=== PATIENT | female | born 1980 | race Caucasian/White ===

== ENCOUNTER 2022-04-20 15:28 | Outpatient (CLI) | payer OTHER, SELFPAY ==
--- NOTE | 2022-04-20 15:20 | MM_ITS ---
Patient: KJ GUILLEN Facility:?[facility] Patient ID:?[id number] Site Patient ID:?[id number]. Site :?1980 Study:?XRay-Breast Bilateral 3D W/CAD-04/20/2022 4:17:22 PM Ordering Physician:Miguel Rodriguez Final Report: BILATERAL SCREENING MAMMOGRAM WITH COMPUTER-AIDED DETECTION AND TOMOSYNTHESIS, 04/20/2022 TECHNIQUE: CC and MLO views were obtained. These mammographic images have been obtained using full-field digital technique. These mammographic images were interpreted with the benefit of computer-aided detection. Breast tomosynthesis was used in this interpretation. COMPARISON FILM: 11/17/2020, 02/17/2018, 07/19/2014. FINDINGS: The breasts are heterogeneously dense, which may obscure small masses. IMPRESSION: There is no radiographic evidence for malignancy. ASSESSMENT: BI-RADS Category 1: Negative RECOMMENDATION: Routine screening mammogram in 1 year. A lay language report of this examination will be provided to the patient. GIOVANNI SHEIKH M.D. Diagnostic Radiologist [email or web address] ADELA/[email or web address] D& Transcribed: 2:[address]/Dictated by: Giovanni Sheikh MD @ 04/21/2022 9:13:00 AM Signed by:?Giovanni Sheikh MD @04/21/2022 3:51:29 PM (Electronic Signature)
== END 2022-04-20 15:29 | disposition home or self-care (01) ==
PROVIDERS: PCP Physician Assistant Medical; Visit Provider Physician Assistant Medical
DX: Z12.31 Encounter for screening mammogram for malignant neoplasm of breast (principal); R92.2 Inconclusive mammogram
CPT/HCPCS: 77063; 77067

== ENCOUNTER 2023-03-17 09:07 | Outpatient (CLI) | payer OTHER, SELFPAY | END 2023-03-17 09:08 | disposition home or self-care (01) | PROVIDERS: PCP Physician Assistant Medical; Visit Provider Registered Nurse | DX: N39.3 Stress incontinence (female) (male) (principal) | CPT/HCPCS: 87086 ==

== ENCOUNTER 2023-05-03 14:25 | Outpatient (CLI) | payer OTHER, SELFPAY ==
--- NOTE | 2023-05-03 14:40 | CRLHL7_ITS ---
For Patients: As a result of the Century Cures Act, medical imaging exams and procedure reports are released immediately into your electronic medical record. You may view this report before your referring provider. If you have questions, please contact your health care provider. BILATERAL SCREENING MAMMOGRAM WITH COMPUTER-AIDED DETECTION AND TOMOSYNTHESIS TECHNIQUE: CC and MLO views were obtained. These mammographic images have been obtained using full-field digital technique. These mammographic images were interpreted with the benefit of computer-aided detection. Breast Tomosynthesis was used in this interpretation. COMPARISON FILM: 04/20/22, 11/17/20, 02/17/18. FINDINGS: The breasts are heterogeneously dense, which may obscure small masses IMPRESSION: There is no radiographic evidence for malignancy. ASSESSMENT: BI-RADS Category 1: Negative RECOMMENDATION: Routine screening mammogram in 1 year. A lay language report of this examination will be provided to the patient. Sean Lund M.D. Diagnostic Radiologist [email or web address] TRACY/Dictated by: Sean Lund MD @ 05/05/2023 12:26:00 PM (Electronically Signed)
== END 2023-05-03 14:26 | disposition home or self-care (01) ==
LOC: MAMMO 14:26
PROVIDERS: PCP Physician Assistant Medical; Visit Provider Physician Assistant Medical
DX: Z12.31 Encounter for screening mammogram for malignant neoplasm of breast (principal); R92.2 Inconclusive mammogram
CPT/HCPCS: 77063; 77067

== ENCOUNTER 2024-03-15 08:04 | Outpatient (CLI) | payer OTHER, SELFPAY | END 2024-03-15 08:05 | disposition home or self-care (01) | LOC: NFLDREF 03-20 14:21 | PROVIDERS: PCP Physician Assistant Medical; Referring Provider Physician Assistant Medical; Visit Provider Physician Assistant Medical | DX: R53.83 Other fatigue (principal); R79.89 Other specified abnormal findings of blood chemistry; M25.562 Pain in left knee; G89.29 Other chronic pain | CPT/HCPCS: 80053; 80061; 82306; 82607; 82728; 84443 ==

== ENCOUNTER 2024-04-02 07:00 | Outpatient (CLI) | payer OTHER, SELFPAY ==
--- NOTE | 2024-04-02 07:15 | MR_ITS ---
[facility] [address] [facility] [address] Phone:?[phone] Fax:?[phone] Referring Physician Information: Yuri Tinoco M.D. [address] [facility] [address] Phone:?[phone] Fax:?[phone] Patient:Cory Harris D.O.B:?1980 Sex:?Female Phone:?[phone] [facility] MRN:?[id number] Exam Date:?04/02/2024 EXAM: MRI of the LEFT KNEE, without contrast CLINICAL HISTORY: Ongoing left knee pain. High-grade injury. Evaluate for meniscal tear. COMPARISONS: Plain radiographs 03/15/2024. TECHNICAL: MR sequences of the left knee: sagittals: PD, PDFS coronals: PD, T2FS axials: PD, PDFS CONTRAST: None SEDATION: None FINDINGS: Bones: No fracture, bone marrow contusion, or other suspicious bone marrow signal abnormality. Patellofemoral joint: Cartilage: Single full-thickness chondral fissure over the superior portion of the trochlear groove. No subchondral cystic change/subchondral edema-like signal. Retinacula: The medial and lateral retinacula are intact. Fat pads: The infrapatellar, quadriceps, and prefemoral fat pads are unremarkable. Knee joint: Effusion: Physiologic amount of joint fluid. Popliteal cyst: Tiny perforated popliteal cyst. Intra-articular bodies: None. Posteromedial corner: The semimembranosus and pes anserine tendons are intact. Medial compartment: Medial meniscus: There is ill-defined sprain of the posterior meniscocapsular tissues. Cartilage: Intact. Lateral compartment: Lateral meniscus: Intact. Cartilage: Intact. Ligaments: Anterior cruciate ligament: Intact. Posterior cruciate ligament: Intact. Medial collateral ligament: Intact. Posterior oblique ligament: Intact. Fibular collateral ligament: Intact. Posterolateral corner: The distal biceps femoris tendon, iliotibial band, popliteus tendon, popliteus muscle, popliteofibular ligament, and arcuate ligament are intact. Extensor mechanism: Patellar tendon: Intact. Quadriceps tendon: Intact. IMPRESSION: 1. Ill-defined sprain of the medial compartment posterior meniscocapsular tissues. 2. Single full-thickness chondral fissure over the superior portion of the trochlear groove. No subchondral cystic change/subchondral edema-like signal. 3. Tiny perforated popliteal cyst. 4. No ligamentous injury, lateral meniscal pathology, or tendinous pathology of the left knee. RCB Electronically signed on 04/02/2024 1:14:00 PM by Rajan Weber M.D.
== END 2024-04-02 07:01 | disposition home or self-care (01) ==
LOC: MRI 07:00
PROVIDERS: PCP Physician Assistant Medical; Visit Provider Orthopaedic Surgery
DX: M25.562 Pain in left knee (principal); S83.8X2A Sprain of other specified parts of left knee, initial encounter; M71.22 Synovial cyst of popliteal space [Baker], left knee; G89.29 Other chronic pain
CPT/HCPCS: 73721

== ENCOUNTER 2024-04-26 09:41 | Outpatient (CLI) | payer OTHER, SELFPAY ==
--- OUTSIDE RECORDS SUMMARY | 2024-04-26 09:55 | XMS_ITS | Clinical Summary ---
Author Organization [employer] [facility] Address [place], [place] [address] Care Team Providers Care Cardiovascular Lab Director Name Role Phone Pcp, No Primary Care Provider Unavailabl e Allergies No known active allergies Medications Medication Sig Dispensed Refills Start Date End Date Status cholecalciferol (VITAMIN D) 1,000 unit capsule Take 1 capsule by mouth once daily. 0 09/22/2009 Active albuterol HFA (PROAIR HFA) 90 mcg/Actuation inhalerIndications:Co ugh Inhale 2 Puffs by mouth 4 times daily if needed. 1 Inhaler 0 10/05/2010 Active TRINESSA 0.18/0.215/0.25 mg-35 mcg (28) tabletIndications:Uns pecified symptom associated with female genital organs TAKE ONE TABLET BY MOUTH DAILY 84 tablet 0 10/25/2011 Active Active Problems Problem Noted Date Diagnosed Date Contraception - Pill 05/13/2010 Vitamin D deficiency 08/22/2009 Overview (08/22/2009): 08/13 VIT D = 23.2 - rec 1000 IU/d thru ASCUS on Pap smear 10/09/2008 Overview (10/20/2010): 10/07/10 PAP neg; HPV pos 08/21/09 PAP neg; HPV pos () 10/09/08 PAP ASCUS; HPV pos - colpo 01/01/2009 = neg (no bx) 06/16/07 PAP neg; HPV pos Screening for cardiovascular condition 9 Overview (10/02/2008): 06/16/07: TC 178, TG 52, HDL 62, LDL 106 Resolved Problems Problem Noted Date Diagnosed Date Resolved Date Tachycardia 02/27/2010 05/13/2010 Overview (02/27/2010): 02/27/2010 - at 36wks ; EKG sinus tach, some SOB Supervision of other normal 08/18/2009 05/13/2010 Overview (11/14/2009): LMP 06/04/09 = MALCOLM 03/29/2010 due date U/S 09/19 @ 12w5d = MALCOLM 03/29/10 - NT neg U/S 11/10/09 @ 20w0d = MALCOLM 03/30/10 Immunizations Name Administration Dates Next Due Influenza, IIV3 (Age >=3 years) 04/15/2010 Tdap 06/16/2007 Family History Medical History Relation Name Comments Other Brother 2 Good Health Brother 3 Hypertension Father Good Health Mother Diabetes Neg. 1 Cancer Neg. 2 Osteoporosis Neg. 3 Heart Disease Neg. 4 Relation Name Status Comments Brother 1 Alive Brother 2 Brother 3 Father Alive Mother Alive Neg. 1 Neg. 2 Neg. 3 Neg. 4 Social History Tobacco Use Types Packs/Day Years Used Date Smoking Tobacco: Never Smokeless Tobacco: Never Alcohol Use Standard Drinks/Week Comments Yes 0 (1 standard drink = 0.6 oz pur e alcohol) occasionally Sex and Gender Information Value Date Recorded Sex Assigned at Not on file Gender Identity Not on file Sexual Orientation Not on file Obstetrics History Para Term AB IAB SAB Ectopic Multiple Livin g Live Births 2 1 1 1 1 0 1 1 Date Outcome GA Total Labor Labor/2nd/3rd Weight Sex Type Anes PTL Kelli A1 A5 Name Clin 2004 IAB Comments:No complicati ons 2009 Term 40w 3d 3.54 kg (7 lb 13 oz) F Vag Epidur al N Livin g Magnolia Harris [facility] on Delivery Location:[place] Comments:No complicati ons Comments Blood type A+ Last Filed Vital Signs Vital Sign Reading Time Taken Comments Blood Pressure 112/59 10/07/2010 8:49 AM CDT Pulse 80 10/05/2010 5:26 PM CDT Temperature 36.7 ??C (98.1 ??F) 10/05/2010 5:26 PM CD T Respiratory Rate 16 10/05/2010 5:26 PM CDT Oxygen Saturation 100% 10/05/2010 5:26 PM CDT Inhaled Oxygen Concentration - - Weight 69.6 kg (153 lb 6.4 oz) 10/07/2010 8:49 A M CDT Height 169.2 cm (5' 6.6) 10/07/2010 8:49 AM CDT Body Mass Index 24.32 10/07/2010 8:49 AM CDT Plan of Treatment Health Maintenance Due Date Last Done Comments Depression screening for age 12+ 1990 BMI (ht and wt on same day) for age 18+ 1996 Hepatitis C screening for age 18-79 1996 Tetanus booster 06/16/2017 06/16/2007 Colonoscopy through age 75 2023 Lipids for age 45-75 2023 06/16/2007 Mammogram for age 45-75 2023 COVID-19 vaccine series (2023-25 season) 2024 Influenza for age 9-49 03/04/2024 04/15/2010 Pap test for age 21-65 03/20/2024 , 03/20/2021, 02/13/2018, Additional history exists Tdap Completed 06/16/2007 HIV for age 15-65 Completed 08/18/2009 Pneumococcal series for age 6-64 Aged Out No longer eligible based on patient's age to complete this topic Procedures Procedure Name Priority Date/Time Associated Diagnosis Comments HPV HIGH RISK Routine 03/20/2021 9:30 AM CDT ANTI HIV 1/2 Routine 08/18/2009 9:58 AM USED CAR MAKE READY MECHANIC Supervision of Normal First LIPID PANEL Routine 06/16/2007 Screening For Cardiovascular Condition from Last 3 Months or Most Recently Relevant to Health Maintenance Results * HPV HIGH RISK (03/20/2021 9:30 AM CDT) TYPE 16 Negative Negative 03/24/2021 11:54 AM CDT [facility] TYPE 18 Negative Negative 03/24/2021 11:54 AM CDT [facility] OTHER HIGH RISK TYPES Negative Negative 03/24/2021 11:54 AM CDT [facility] Other (Cervical/Vagina l) 03/20/2021 9:30 AM CDT 03/20/2021 6:24 PM CDT Narrative [facility] - 03/24/2021 11:54 AM CDT HPV types 16, 18, 31, 33, 35, 39, 45, 51, 52, 56, 58, 59, 66 and 68 DNA were undetectable or below the pre-set threshold. Methodology: Andriy Natalya 4800 HPV Test Jennifer Johnson PA-C MICROBIOLOGY [facility] [address] * ANTI HIV 1/2 (08/18/2009 9:58 AM USED CAR MAKE READY MECHANIC) ANTI HIV 1/2 Non-reacti ve [facility] Blood specimen (specimen) BLOOD SPECIMEN / Unknown 08/18/2009 9:58 AM USED CAR MAKE READY MECHANIC 08/18/2009 9:51 AM USED CAR MAKE READY MECHANIC Constance Roland MD SEND OUTS [facility] INTERNAL ZIP [address] [place] [address] * LIPID PANEL (06/16/2007) CHOLESTEROL,TOTAL mg/dL TRIGLYCERIDES mg/dL HDL CHOLESTEROL mg/dL LDL CHOLESTEROL mg/dL CHOL/HDL RATIO Blood specimen (specimen) BLOOD SPECIMEN / Unknown Constance Roland MD CHEMISTRY from Last 3 Months or Most Recently Relevant to Health Maintenance Care Teams Cardiovascular Lab Director Relationship Specialty Start Date End Date Pcp, No . PCP - General 02/26/16
--- OUTSIDE RECORDS SUMMARY | 2024-04-26 09:55 | XMS_ITS | Clinical Summary ---
Author Organization [place] [facility] Address [address] [place] [address] Care Team Providers Care Plasma Cutting Machine Operator Name Role Phone [facility], [facility] Primary Care Provide r Rosalinda Diaz MD Unavailable [phone] Allergies Active Allergy Reactions Criticality Noted Date Comments Azithromycin Rash 11/18/2004 Zithromax Medications LY 28 3-0.03 MG OR TABS 1 TABLET DAILY 11/18/2004 Active Immunizations Name Administration Dates Next Due Influenza Vaccine >6 months,quad, PF 03/30/2019, 05/12/2018 TDAP Vaccine (Adacel) 10/12/2012,03/04/2010 Family History Medical History Relation Comments Hypertension Father Lipids Father Gynecology Mother Endometriosis, h ad a hysterectomy Cerebrovascular Disease Paternal Grandfather Hypertension Paternal Grandfather Lipids Paternal Grandfather Relation Status Comments Brother Alive Father Alive Maternal Grandfather Alive Maternal Grandmother Alive Mother Alive Paternal Grandfather Alive Paternal Grandmother Alive Social History Tobacco Use Types Packs/Day Years Used Date Smoking Tobacco: Never Alcohol Use Standard Drinks/Week Comments Not Asked 0 (1 standard drink = 0.6 oz pur e alcohol) Comments No Sex and Gender Information Value Date Recorded Sex Assigned at Not on file Legal Sex Female 4:13 AM LUGGAGE ATTENDANT Gender Identity Not on file Sexual Orientation Not on file Last Filed Vital Signs Vital Sign Reading Time Taken Comments Blood Pressure 112/70 10/01/2005 8:30 AM LUGGAGE ATTENDANT Pulse 72 10/01/2005 8:30 AM LUGGAGE ATTENDANT Temperature 37.3 ??C (99.1 ??F) 11/18/2004 3:00 PM CD T Respiratory Rate 16 11/18/2004 3:00 PM CDT Oxygen Saturation - - Inhaled Oxygen Concentration - - Weight 68.3 kg (150 lb 8 oz) 10/01/2005 8:30 AM LUGGAGE ATTENDANT Height 167.6 cm (5' 6) 10/01/2005 8:30 AM LUGGAGE ATTENDANT Body Mass Index 24.29 10/01/2005 8:30 AM LUGGAGE ATTENDANT Plan of Treatment Not on file Care Teams Plasma Cutting Machine Operator Relationship Specialty Start Date End Date [facility], [facility] EMBOSSING [place] [address] PCP - General Family Practice 05/04/18 Rosalinda Diaz MD [address] [facility] [address] [place] [address] 05/04/18
--- OUTSIDE RECORDS SUMMARY | 2024-04-26 09:55 | XMS_ITS | Referral Summary ---
Author Organization [facility] Address [address] [place] [address] Care Team Providers Care Landscape Contractor Name Role Phone [facility], [facility] Primary Care Provide r Rosalinda Diaz MD Unavailable [phone] Allergies Active Allergy Reactions Criticality Noted Date Comments Azithromycin Rash 11/18/2004 Zithromax Medications LY 28 3-0.03 MG OR TABS 1 TABLET DAILY 11/18/2004 Active Immunizations Name Administration Dates Next Due Influenza Vaccine >6 months,quad, PF 03/30/2019, 05/12/2018 TDAP Vaccine (Adacel) 10/12/2012,03/04/2010 Social History Tobacco Use Types Packs/Day Years Used Date Smoking Tobacco: Never Alcohol Use Standard Drinks/Week Comments Not Asked 0 (1 standard drink = 0.6 oz pur e alcohol) Comments No Sex and Gender Information Value Date Recorded Sex Assigned at Not on file Legal Sex Female 4:13 AM AIR BOATSWAIN Gender Identity Not on file Sexual Orientation Not on file Last Filed Vital Signs Vital Sign Reading Time Taken Comments Blood Pressure 112/70 10/01/2005 8:30 AM AIR BOATSWAIN Pulse 72 10/01/2005 8:30 AM AIR BOATSWAIN Temperature 37.3 ??C (99.1 ??F) 11/18/2004 3:00 PM CD T Respiratory Rate 16 11/18/2004 3:00 PM CDT Oxygen Saturation - - Inhaled Oxygen Concentration - - Weight 68.3 kg (150 lb 8 oz) 10/01/2005 8:30 AM AIR BOATSWAIN Height 167.6 cm (5' 6) 10/01/2005 8:30 AM AIR BOATSWAIN Body Mass Index 24.29 10/01/2005 8:30 AM AIR BOATSWAIN Plan of Treatment Not on file Care Teams Landscape Contractor Relationship Specialty Start Date End Date [facility], [facility] [place] [address] PCP - General Family Practice 05/04/18 Rosalinda Diaz MD [address] [facility] [address] [address] 05/04/18
== END 2024-04-26 09:42 | disposition home or self-care (01) ==
LOC: NFLDREF 09:45
PROVIDERS: PCP Physician Assistant Medical; Visit Provider Family Medicine
DX: R79.89 Other specified abnormal findings of blood chemistry (principal); R53.83 Other fatigue; R22.1 Localized swelling, mass and lump, neck; M54.2 Cervicalgia
CPT/HCPCS: 84443

== ENCOUNTER 2024-05-01 07:04 | Outpatient (CLI) | payer OTHER, SELFPAY ==
--- OUTSIDE RECORDS SUMMARY | 2024-05-01 07:05 | XMS_ITS | Clinical Summary ---
Author Organization [employer] [facility] Address [place], [place] [address] Care Team Providers Care Fitness Technician Name Role Phone Pcp, No Primary Care [...] Epidur al N Livin g Magnolia Harris [facility] on Delivery Location:Deb Comments:No complicati ons Comments [...] ANTI HIV 1/2 Routine 08/18/2009 9:58 AM DISTRICT PLANT SUPERVISOR Supervision of Normal First LIPID PANEL Routine 06/16/2007 Screening For Cardiovascular Condition from Last 3 Months or Most Recently Relevant to Health Maintenance Results * HPV HIGH RISK (03/20/2021 9:30 AM CDT) TYPE 16 Negative Negative 03/24/2021 11:54 AM CDT [facility] TYPE 18 Negative Negative 03/24/2021 11:54 AM CDT [facility] OTHER HIGH RISK TYPES Negative Negative 03/24/2021 11:54 AM CDT [facility] Other (Cervical/Vagina l) 03/20/2021 9:30 AM CDT 03/20/2021 6:24 PM CDT Narrative [facility] - 03/24/2021 11:54 AM CDT HPV types 16, 18, 31, 33, 35, 39, 45, 51, 52, 56, 58, 59, 66 and 68 DNA were undetectable or below the pre-set threshold. Methodology: Andriy Natalya 4800 HPV Test Jennifer Johnson PA-C [facility]BIOLOG[facility] [address] * ANTI HIV 1/2 (08/18/2009 9:58 AM DISTRICT PLANT SUPERVISOR) ANTI HIV 1/2 Non-reacti ve [facility] Blood specimen (specimen) BLOOD SPECIMEN / Unknown 08/18/2009 9:58 AM DISTRICT PLANT SUPERVISOR 08/18/2009 9:51 AM DISTRICT PLANT SUPERVISOR Constance Roland MD SEND OUTS [facility] INTERNAL ZIP [address] [place] [address] * LIPID PANEL (06/16/2007) CHOLESTEROL,TOTAL mg/dL TRIGLYCERIDES mg/dL HDL CHOLESTEROL mg/dL LDL CHOLESTEROL mg/dL CHOL/HDL RATIO Blood specimen (specimen) BLOOD SPECIMEN / Unknown Constance Roland MD CHEMISTRY from Last 3 Months or Most Recently Relevant to Health Maintenance Care Teams Fitness Technician Relationship Specialty Start Date End Date Pcp, No . PCP - General 02/26/16
--- OUTSIDE RECORDS SUMMARY | 2024-05-01 07:05 | XMS_ITS | Clinical Summary ---
Author Organization [place] [facility] Address [address] [place] [address] Care Team Providers Care Stockfeed Miller Name Role Phone [facility], [facility] Primary Care Provide r Rosalinda Diaz MD Unavailable [phone] Allergies Active Allergy Reactions Criticality Noted Date [...] on file Legal Sex Female 4:13 AM FLUID JET CUTTER OPERATOR Gender Identity Not on file Sexual Orientation Not on file Last Filed Vital Signs Vital Sign Reading Time Taken Comments Blood Pressure 112/70 10/01/2005 8:30 AM FLUID JET CUTTER OPERATOR Pulse 72 10/01/2005 8:30 AM FLUID JET CUTTER OPERATOR Temperature 37.3 ??C (99.1 ??F) 11/18/2004 3:00 PM CD T Respiratory Rate 16 11/18/2004 3:00 PM CDT Oxygen Saturation - - Inhaled Oxygen Concentration - - Weight 68.3 kg (150 lb 8 oz) 10/01/2005 8:30 AM FLUID JET CUTTER OPERATOR Height 167.6 cm (5' 6) 10/01/2005 8:30 AM FLUID JET CUTTER OPERATOR Body Mass Index 24.29 10/01/2005 8:30 AM FLUID JET CUTTER OPERATOR Plan of Treatment Not on file Care Teams Stockfeed Miller Relationship Specialty Start Date End Date [facility], [facility] [place] [address] PCP - General Family Practice 05/04/18 Rosalinda Diaz MD [address] [facility] [address] [place] [address] 05/04/18
--- OUTSIDE RECORDS SUMMARY | 2024-05-01 07:06 | XMS_ITS | Referral Summary ---
Author Organization [place] Address [address] [place] [address] Care Team Providers Care Outside Sales Advertising Executive Name Role Phone [facility], [facility] Primary Care Provide r Rosalinda Diaz MD Unavailable [phone] Allergies Active Allergy Reactions Criticality Noted Date [...] on file Legal Sex Female 4:13 AM DRAFTER ASSISTANT Gender Identity Not on file Sexual Orientation Not on file Last Filed Vital Signs Vital Sign Reading Time Taken Comments Blood Pressure 112/70 10/01/2005 8:30 AM DRAFTER ASSISTANT Pulse 72 10/01/2005 8:30 AM DRAFTER ASSISTANT Temperature 37.3 ??C (99.1 ??F) 11/18/2004 3:00 PM CD T Respiratory Rate 16 11/18/2004 3:00 PM CDT Oxygen Saturation - - Inhaled Oxygen Concentration - - Weight 68.3 kg (150 lb 8 oz) 10/01/2005 8:30 AM DRAFTER ASSISTANT Height 167.6 cm (5' 6) 10/01/2005 8:30 AM DRAFTER ASSISTANT Body Mass Index 24.29 10/01/2005 8:30 AM DRAFTER ASSISTANT Plan of Treatment Not on file Care Teams Outside Sales Advertising Executive Relationship Specialty Start Date End Date [facility], [facility] T[employer] [place] [place] [address] PCP - General Family Practice 05/04/18 Rosalinda Diaz MD [address] [facility] [address] [address] 05/04/18
--- NOTE | 2024-05-01 07:15 | CRLHL7_ITS ---
For Patients: As a result of the Century Cures Act, medical imaging exams and procedure reports are released immediately into your electronic medical record. You may view this report before your referring provider. If you have questions, please contact your health care provider. INDICATION: Fatigue COMPARISON: none TECHNIQUE: Aparicio scale and color Doppler images were acquired of the thyroid gland. FINDINGS: The thyroid gland demonstrates normal uniform echogenicity and has a smooth outer contour. The right lobe measures 5.2 x 1.3 x 1.5 cm and the left lobe measures 4.7 x 1.2 x 1.5 cm in size. Isthmus measures 2 millimeters. Cystic nodule right thyroid lobe measures 4 x 3 x 3 millimeters, TR 1. The color Doppler images demonstrate normal vascularity. There is no evidence of cervical lymphadenopathy or parathyroid mass. IMPRESSION: Unremarkable thyroid ultrasound. No suspicious thyroid nodule. Dictated by Sean Lund MD @ 05/01/2024 12:15:05 PM (Electronically Signed)
== END 2024-05-01 07:05 | disposition home or self-care (01) ==
PROVIDERS: PCP Physician Assistant Medical; Visit Provider Family Medicine
DX: R53.83 Other fatigue (principal); M54.2 Cervicalgia; R22.1 Localized swelling, mass and lump, neck
CPT/HCPCS: 76536

== ENCOUNTER 2024-05-07 07:56 | Outpatient (CLI) | payer OTHER, SELFPAY ==
--- OUTSIDE RECORDS SUMMARY | 2024-05-07 07:58 | XMS_ITS | Clinical Summary ---
Author Organization [facility] Address [address] [place] [address] Care Team Providers Care Plant Hr Manager Name Role Phone [facility], [facility] Primary Care Provide r Rosalinda Diaz MD Unavailable [phone] Allergies Active Allergy Reactions Criticality Noted Date [...] on file Legal Sex Female 4:13 AM MICROFILM PROCESSOR Gender Identity Not on file Sexual Orientation Not on file Last Filed Vital Signs Vital Sign Reading Time Taken Comments Blood Pressure 112/70 10/01/2005 8:30 AM MICROFILM PROCESSOR Pulse 72 10/01/2005 8:30 AM MICROFILM PROCESSOR Temperature 37.3 ??C (99.1 ??F) 11/18/2004 3:00 PM CD T Respiratory Rate 16 11/18/2004 3:00 PM CDT Oxygen Saturation - - Inhaled Oxygen Concentration - - Weight 68.3 kg (150 lb 8 oz) 10/01/2005 8:30 AM MICROFILM PROCESSOR Height 167.6 cm (5' 6) 10/01/2005 8:30 AM MICROFILM PROCESSOR Body Mass Index 24.29 10/01/2005 8:30 AM MICROFILM PROCESSOR Plan of Treatment Not on file Care Teams Plant Hr Manager Relationship Specialty Start Date End Date [facility], [facility] [place] [address] PCP - General Family Practice 05/04/18 Rosalinda Diaz MD [address] [facility] [address] [place] [address] 05/04/18
--- OUTSIDE RECORDS SUMMARY | 2024-05-07 07:58 | XMS_ITS | Clinical Summary ---
Author Organization [employer] [facility] Address [place], [place] [address] Care Team Providers Care Health Practice Manager Name Role Phone Pcp, No Primary Care [...] Epidur al N Livin g [facility] on Delivery Location:Deb Comments:No complicati ons Comments [...] ANTI HIV 1/2 Routine 08/18/2009 9:58 AM SHIP ENGINES OPERATING ENGINEER Supervision of Normal First LIPID PANEL Routine 06/16/2007 Screening For Cardiovascular Condition from Last 3 Months or Most Recently Relevant to Health Maintenance Results * HPV HIGH RISK (03/20/2021 9:30 AM CDT) TYPE 16 Negative Negative 03/24/2021 11:54 AM CDT [facility] TYPE 18 Negative Negative 03/24/2021 11:54 AM CDT [facility] OTHER HIGH RISK TYPES Negative Negative 03/24/2021 11:54 AM CDT [facility] Other (Cervical/Vagina l) 03/20/2021 9:30 AM CDT 03/20/2021 6:24 PM CDT Narrative [facility] - 03/24/2021 11:54 AM CDT HPV types 16, 18, 31, 33, 35, 39, 45, 51, 52, 56, 58, 59, 66 and 68 DNA were undetectable or below the pre-set threshold. Methodology: Andriy Natalya 4800 HPV Test Jennifer Johnson PA-C [facility]BI[facility] [address] * ANTI HIV 1/2 (08/18/2009 9:58 AM SHIP ENGINES OPERATING ENGINEER) ANTI HIV 1/2 Non-reacti ve [facility] Blood specimen (specimen) BLOOD SPECIMEN / Unknown 08/18/2009 9:58 AM SHIP ENGINES OPERATING ENGINEER 08/18/2009 9:51 AM SHIP ENGINES OPERATING ENGINEER Constance Roland MD SEND OUTS [facility] INTERNAL ZIP [address] [place] [address] * LIPID PANEL (06/16/2007) CHOLESTEROL,TOTAL mg/dL TRIGLYCERIDES mg/dL HDL CHOLESTEROL mg/dL LDL CHOLESTEROL mg/dL CHOL/HDL RATIO Blood specimen (specimen) BLOOD SPECIMEN / Unknown Constance Roland MD CHEMISTRY from Last 3 Months or Most Recently Relevant to Health Maintenance Care Teams Health Practice Manager Relationship Specialty Start Date End Date Pcp, No . PCP - General 02/26/16
--- OUTSIDE RECORDS SUMMARY | 2024-05-07 07:58 | XMS_ITS | Referral Summary ---
Author Organization [facility] Address [address] [place] [address] Care Team Providers Care Terminal Clerk Name Role Phone [facility], [facility] Primary Care Provide r Rosalinda Diaz MD Unavailable [phone] Allergies Active Allergy Reactions Criticality Noted Date [...] on file Legal Sex Female 4:13 AM HIGH SCHOOL SOCIAL STUDIES TEACHER Gender Identity Not on file Sexual Orientation Not on file Last Filed Vital Signs Vital Sign Reading Time Taken Comments Blood Pressure 112/70 10/01/2005 8:30 AM HIGH SCHOOL SOCIAL STUDIES TEACHER Pulse 72 10/01/2005 8:30 AM HIGH SCHOOL SOCIAL STUDIES TEACHER Temperature 37.3 ??C (99.1 ??F) 11/18/2004 3:00 PM CD T Respiratory Rate 16 11/18/2004 3:00 PM CDT Oxygen Saturation - - Inhaled Oxygen Concentration - - Weight 68.3 kg (150 lb 8 oz) 10/01/2005 8:30 AM HIGH SCHOOL SOCIAL STUDIES TEACHER Height 167.6 cm (5' 6) 10/01/2005 8:30 AM HIGH SCHOOL SOCIAL STUDIES TEACHER Body Mass Index 24.29 10/01/2005 8:30 AM HIGH SCHOOL SOCIAL STUDIES TEACHER Plan of Treatment Not on file Care Teams Terminal Clerk Relationship Specialty Start Date End Date [facility], [facility] [place] [address] PCP - General Family Practice 05/04/18 Rosalinda Diaz MD [address] [facility] [address] [address] 05/04/18
--- NOTE | 2024-05-07 09:25 | W.ANESCHARGE ---
Anesthesia Charges Start Date/Time Anesthesia Start Date: 05/07/24 Anesthesia Start Time: 08:53 Stop Date/Time Anesthesia Stop Date: 05/07/24 Anesthesia Stop Time: 09:23
--- NOTE | 2024-05-07 09:36 | W.ANESCHARGE ---
Anesthesia Charges Start Date/Time Anesthesia Start Date: 05/07/24 Anesthesia Start Time: 08:53 Stop Date/Time Anesthesia Stop Date: 05/07/24 Anesthesia Stop Time: 09:23
== END 2024-05-07 07:57 | disposition home or self-care (01) ==
LOC: OP CLINIC 07:56
PROVIDERS: PCP Physician Assistant Medical; Visit Provider Surgery
DX: Z12.11 Encounter for screening for malignant neoplasm of colon (principal); Z80.0 Family history of malignant neoplasm of digestive organs
CPT/HCPCS: 00812; 45378; J2704

== ENCOUNTER 2024-05-08 18:57 | Outpatient (CLI) | payer OTHER, SELFPAY ==
--- OUTSIDE RECORDS SUMMARY | 2024-05-08 18:58 | XMS_ITS | Clinical Summary ---
Author Organization [place] Address [address] [place] [address] Care Team Providers Care Grey Roll Man Name Role Phone [facility], [facility] Primary Care Provide r Rosalinda Diaz MD Unavailable [phone] Allergies Active Allergy Reactions Criticality Noted Date [...] on file Legal Sex Female 4:13 AM CRITICAL CARE UNIT MANAGER Gender Identity Not on file Sexual Orientation Not on file Last Filed Vital Signs Vital Sign Reading Time Taken Comments Blood Pressure 112/70 10/01/2005 8:30 AM CRITICAL CARE UNIT MANAGER Pulse 72 10/01/2005 8:30 AM CRITICAL CARE UNIT MANAGER Temperature 37.3 ??C (99.1 ??F) 11/18/2004 3:00 PM CD T Respiratory Rate 16 11/18/2004 3:00 PM CDT Oxygen Saturation - - Inhaled Oxygen Concentration - - Weight 68.3 kg (150 lb 8 oz) 10/01/2005 8:30 AM CRITICAL CARE UNIT MANAGER Height 167.6 cm (5' 6) 10/01/2005 8:30 AM CRITICAL CARE UNIT MANAGER Body Mass Index 24.29 10/01/2005 8:30 AM CRITICAL CARE UNIT MANAGER Plan of Treatment Not on file Care Teams Grey Roll Man Relationship Specialty Start Date End Date [facility], [facility] DATA [place] [address] PCP - General Family Practice 05/04/18 Rosalinda Diaz MD [address] [facility] [address] [place] [address] 05/04/18
--- OUTSIDE RECORDS SUMMARY | 2024-05-08 18:58 | XMS_ITS | Clinical Summary ---
Author Organization [employer] [facility] Address [place], [place] [address] Care Team Providers Care Block Breaker Operator Name Role Phone Pcp, No Primary Care [...] Epidur al N Livin g [facility] on Delivery Location:Deb Comments:No complicati ons Comments [...] ANTI HIV 1/2 Routine 08/18/2009 9:58 AM ACETONE RECOVERY WORKER Supervision of Normal First LIPID PANEL Routine 06/16/2007 Screening For Cardiovascular Condition from Last 3 Months or Most Recently Relevant to Health Maintenance Results * HPV HIGH RISK (03/20/2021 9:30 AM CDT) TYPE 16 Negative Negative 03/24/2021 11:54 AM CDT [facility] TYPE 18 Negative Negative 03/24/2021 11:54 AM CDT [facility] OTHER HIGH RISK TYPES Negative Negative 03/24/2021 11:54 AM CDT [facility] Other (Cervical/Vagina l) 03/20/2021 9:30 AM CDT 03/20/2021 6:24 PM CDT Narrative [facility] - 03/24/2021 11:54 AM CDT HPV types 16, 18, 31, 33, 35, 39, 45, 51, 52, 56, 58, 59, 66 and 68 DNA were undetectable or below the pre-set threshold. Methodology: Andriy Natalya 4800 HPV Test Jennifer Johnson PA-C [facility] [address] * ANTI HIV 1/2 (08/18/2009 9:58 AM ACETONE RECOVERY WORKER) ANTI HIV 1/2 Non-reacti ve [facility] Blood specimen (specimen) BLOOD SPECIMEN / Unknown 08/18/2009 9:58 AM ACETONE RECOVERY WORKER 08/18/2009 9:51 AM ACETONE RECOVERY WORKER Constance Roland MD SEND OUTS [facility] INTERNAL ZIP [address] [place] [address] * LIPID PANEL (06/16/2007) CHOLESTEROL,TOTAL mg/dL TRIGLYCERIDES mg/dL HDL CHOLESTEROL mg/dL LDL CHOLESTEROL mg/dL CHOL/HDL RATIO Blood specimen (specimen) BLOOD SPECIMEN / Unknown Constance Roland MD CHEMISTRY from Last 3 Months or Most Recently Relevant to Health Maintenance Care Teams Block Breaker Operator Relationship Specialty Start Date End Date Pcp, No . PCP - General 02/26/16
--- OUTSIDE RECORDS SUMMARY | 2024-05-08 18:58 | XMS_ITS | Referral Summary ---
Author Organization [place] Address [address] [place] [address] Care Team Providers Care Lunch Cook Name Role Phone [facility], [facility] Primary Care Provide r Rosalinda Diaz MD Unavailable [phone] Allergies Active Allergy Reactions Criticality Noted Date [...] on file Legal Sex Female 4:13 AM LOAD OUT PERSON Gender Identity Not on file Sexual Orientation Not on file Last Filed Vital Signs Vital Sign Reading Time Taken Comments Blood Pressure 112/70 10/01/2005 8:30 AM LOAD OUT PERSON Pulse 72 10/01/2005 8:30 AM LOAD OUT PERSON Temperature 37.3 ??C (99.1 ??F) 11/18/2004 3:00 PM CD T Respiratory Rate 16 11/18/2004 3:00 PM CDT Oxygen Saturation - - Inhaled Oxygen Concentration - - Weight 68.3 kg (150 lb 8 oz) 10/01/2005 8:30 AM LOAD OUT PERSON Height 167.6 cm (5' 6) 10/01/2005 8:30 AM LOAD OUT PERSON Body Mass Index 24.29 10/01/2005 8:30 AM LOAD OUT PERSON Plan of Treatment Not on file Care Teams Lunch Cook Relationship Specialty Start Date End Date [facility], [facility] PROFESSOR OF [employer] [place] [address] PCP - General Family Practice 05/04/18 Rosalinda Diaz MD [address] [facility] [address] [address] 05/04/18
--- NOTE | 2024-05-08 19:00 | CRLHL7_ITS ---
For Patients: As a result of the Century Cures Act, medical imaging exams and procedure reports are released immediately into your electronic medical record. You may view this report before your referring provider. If you have questions, please contact your health care provider. BILATERAL DIGITAL SCREENING MAMMOGRAM WITH COMPUTER-AIDED DETECTION AND TOMOSYNTHESIS CLINICAL HISTORY: Routine screening exam. COMPARISON: 05/03/23, 04/20/22, 11/17/20. TECHNIQUE: Digital mammogram in CC and MLO projections including computer-aided detection (CAD). Tomosynthesis was used in this interpretation. BREAST COMPOSITION: The breasts are heterogeneously dense, which may obscure small masses. FINDINGS: RIGHT Breast: No suspicious findings. LEFT Breast: Focal asymmetric density 6 o`clock 5 cm from the nipple. IMPRESSION: LEFT breast asymmetry/mass. RECOMMENDATIONS: Additional mammographic views of the LEFT breast including 3D spot compression CC/MLO. LEFT breast ultrasound may also be required. The [facility] will contact the patient. A lay language report of this examination will be provided to the patient. BI-RADS Category 0: Incomplete: Need Additional Imaging Evaluation Dictated by Sean Lund MD @ 05/14/2024 9:39:25 AM /Dictated by: Sean Lund MD @ 05/14/2024 9:39:00 AM (Electronically Signed)
== END 2024-05-08 18:58 | disposition home or self-care (01) ==
LOC: MAMMO 18:57
PROVIDERS: PCP Physician Assistant Medical; Visit Provider Physician Assistant Medical
DX: Z12.31 Encounter for screening mammogram for malignant neoplasm of breast (principal); N63.20 Unspecified lump in the left breast, unspecified quadrant
CPT/HCPCS: 77063; 77067

== ENCOUNTER 2024-05-18 09:29 | Outpatient (CLI) | payer OTHER, SELFPAY ==
--- OUTSIDE RECORDS SUMMARY | 2024-05-18 09:31 | XMS_ITS | Clinical Summary ---
Author Organization [employer] [facility] Address [place], [place] [address] Care Team Providers Care Pipe Puller Name Role Phone Pcp, No Primary Care [...] N Livin g [facility] on Delivery Location:Deb Comments:No complicati ons [...] ANTI HIV 1/2 Routine 08/18/2009 9:58 AM MANAGEMENT ACCOUNTS MANAGER Supervision of Normal First LIPID PANEL Routine 06/16/2007 Screening For Cardiovascular Condition from Last 3 Months or Most Recently Relevant to Health Maintenance Results * HPV HIGH RISK (03/20/2021 9:30 AM CDT) TYPE 16 Negative Negative 03/24/2021 11:54 AM CDT [facility] TYPE 18 Negative Negative 03/24/2021 11:54 AM CDT [facility] LAB[facility] OTHER HIGH RISK TYPES Negative Negative 03/24/2021 11:54 AM CDT [facility] Other (Cervical/Vagina l) 03/20/2021 9:30 AM CDT 03/20/2021 6:24 PM CDT Narrative [facility] - 03/24/2021 11:54 AM CDT HPV types 16, 18, 31, 33, 35, 39, 45, 51, 52, 56, 58, 59, 66 and 68 DNA were undetectable or below the pre-set threshold. Methodology: Andriy Natalya 4800 HPV Test Jennifer Johnson PA-C [facility]CRO[facility] [address] * ANTI HIV 1/2 (08/18/2009 9:58 AM MANAGEMENT ACCOUNTS MANAGER) ANTI HIV 1/2 Non-reacti ve [facility] Blood specimen (specimen) BLOOD SPECIMEN / Unknown 08/18/2009 9:58 AM MANAGEMENT ACCOUNTS MANAGER 08/18/2009 9:51 AM MANAGEMENT ACCOUNTS MANAGER Constance Roland MD SEND OUTS [facility] INTERNAL ZIP [address] [place] [address] * LIPID PANEL (06/16/2007) CHOLESTEROL,TOTAL mg/dL TRIGLYCERIDES mg/dL HDL CHOLESTEROL mg/dL LDL CHOLESTEROL mg/dL CHOL/HDL RATIO Blood specimen (specimen) BLOOD SPECIMEN / Unknown Constance Roland MD CHEMISTRY from Last 3 Months or Most Recently Relevant to Health Maintenance Care Teams Pipe Puller Relationship Specialty Start Date End Date Pcp, No . PCP - General 02/26/16
--- OUTSIDE RECORDS SUMMARY | 2024-05-18 09:32 | XMS_ITS | Clinical Summary ---
Author Organization [place] Address [address] [place] [address] Care Team Providers Care Hides Inspector Name Role Phone [facility], [facility] Primary Care Provide r Rosalinda Diaz MD Unavailable [phone] Allergies Active Allergy Reactions Criticality Noted Date [...] on file Legal Sex Female 4:13 AM SPRAY APPLICATOR Gender Identity Not on file Sexual Orientation Not on file Last Filed Vital Signs Vital Sign Reading Time Taken Comments Blood Pressure 112/70 10/01/2005 8:30 AM SPRAY APPLICATOR Pulse 72 10/01/2005 8:30 AM SPRAY APPLICATOR Temperature 37.3 ??C (99.1 ??F) 11/18/2004 3:00 PM CD T Respiratory Rate 16 11/18/2004 3:00 PM CDT Oxygen Saturation - - Inhaled Oxygen Concentration - - Weight 68.3 kg (150 lb 8 oz) 10/01/2005 8:30 AM SPRAY APPLICATOR Height 167.6 cm (5' 6) 10/01/2005 8:30 AM SPRAY APPLICATOR Body Mass Index 24.29 10/01/2005 8:30 AM SPRAY APPLICATOR Plan of Treatment Not on file Care Teams Hides Inspector Relationship Specialty Start Date End Date [facility], [facility] [employer] [place] [address] PCP - General Family Practice 05/04/18 Rosalinda Diaz MD [address] [facility] [address] [place] [address] 05/04/18
--- OUTSIDE RECORDS SUMMARY | 2024-05-18 09:32 | XMS_ITS | Referral Summary ---
Author Organization [facility] Address [address] [place] [address] Care Team Providers Care Grain Sampler Name Role Phone [facility], [facility] Primary Care Provide r Rosalinda Diaz MD Unavailable [phone] Allergies Active Allergy Reactions Criticality Noted Date [...] on file Legal Sex Female 4:13 AM CASE MONITOR Gender Identity Not on file Sexual Orientation Not on file Last Filed Vital Signs Vital Sign Reading Time Taken Comments Blood Pressure 112/70 10/01/2005 8:30 AM CASE MONITOR Pulse 72 10/01/2005 8:30 AM CASE MONITOR Temperature 37.3 ??C (99.1 ??F) 11/18/2004 3:00 PM CD T Respiratory Rate 16 11/18/2004 3:00 PM CDT Oxygen Saturation - - Inhaled Oxygen Concentration - - Weight 68.3 kg (150 lb 8 oz) 10/01/2005 8:30 AM CASE MONITOR Height 167.6 cm (5' 6) 10/01/2005 8:30 AM CASE MONITOR Body Mass Index 24.29 10/01/2005 8:30 AM CASE MONITOR Plan of Treatment Not on file Care Teams Grain Sampler Relationship Specialty Start Date End Date [facility], [facility] [place] [address] PCP - General Family Practice 05/04/18 Rosalinda Diaz MD [address] [facility] [address] [address] 05/04/18
--- NOTE | 2024-05-18 09:45 | CRLHL7_ITS ---
For Patients: As a result of the Cures Act, medical imaging exams and procedure reports are released immediately into your electronic medical record. You may view this report before your referring provider. If you have questions, please contact your health care provider. DIGITAL DIAGNOSTIC LEFT MAMMOGRAM USING TOMOSYNTHESIS AND COMPUTER-AIDED DETECTION LEFT BREAST ULTRASOUND CLINICAL HISTORY: LEFT breast mass/asymmetry. COMPARISON: 05/08/2024. TECHNIQUE: Digital LEFT mammogram in two projections. Tomosynthesis was used in this interpretation. Real-time ultrasound imaging of LEFT breast with imaging documentation. BREAST COMPOSITION: The breasts are heterogeneously dense, which may obscure small masses. FINDINGS: 3D spot compression CC/MLO LEFT breast mammogram images submitted. Persistent nodular density within the inferior LEFT breast. No architectural distortion. No suspicious calcifications. Targeted LEFT breast ultrasound performed 4 o`clock 4 cm from the nipple. Solid hypoechoic nodule is present at posterior depth measuring 8 x 5 x 6 millimeters. IMPRESSION: Indeterminate solid nodule LEFT breast 4 o`clock 4 cm from the nipple measuring 8 millimeters. RECOMMENDATIONS: Ultrasound-guided core needle biopsy. A lay language report of this examination will be provided to the patient. BI-RADS Category 4: Suspicious Dictated by Sean Lund MD @ 05/18/2024 1:18:12 PM jj/Dictated by: Sean Lund MD @ 05/18/2024 1:18:00 PM (Electronically Signed)
--- NOTE | 2024-05-18 10:15 | CRLHL7_ITS ---
For Patients: As a result of the Cures Act, medical imaging exams and procedure reports are released immediately into your electronic medical record. You may view this report before your referring provider. If you have questions, please contact your health care provider. PLEASE SEE DIGITAL DIAGNOSTIC LEFT MAMMOGRAM PERFORMED SAME DAY CRL:deni cheema/Dictated by: Sean Lund MD @ 05/18/2024 1:18:00 PM (Electronically Signed)
== END 2024-05-18 09:30 | disposition home or self-care (01) ==
LOC: MAMMO 09:30
PROVIDERS: PCP Physician Assistant Medical; Visit Provider Physician Assistant Medical
DX: N63.20 Unspecified lump in the left breast, unspecified quadrant (principal); R92.332 Mammographic heterogeneous density, left breast; R92.8 Other abnormal and inconclusive findings on diagnostic imaging of breast
CPT/HCPCS: 76642; 77065; G0279

== ENCOUNTER 2024-05-28 07:45 | Outpatient (CLI) | payer OTHER, SELFPAY ==
--- OUTSIDE RECORDS SUMMARY | 2024-05-28 07:50 | XMS_ITS | Clinical Summary ---
Author Organization [place] Address [address] [place] [address] Care Team Providers Care Shell Fisherman Name Role Phone [facility], [facility] Primary Care Provide r Rosalinda Diaz MD Unavailable [phone] Allergies Active Allergy Reactions Criticality Noted Date [...] on file Legal Sex Female 4:13 AM MEDIATION COMMISSIONER Gender Identity Not on file Sexual Orientation Not on file Last Filed Vital Signs Vital Sign Reading Time Taken Comments Blood Pressure 112/70 10/01/2005 8:30 AM MEDIATION COMMISSIONER Pulse 72 10/01/2005 8:30 AM MEDIATION COMMISSIONER Temperature 37.3 C (99.1 F) 11/18/2004 3:00 PM CDT Respiratory Rate 16 11/18/2004 3:00 PM CDT Oxygen Saturation - - Inhaled Oxygen Concentration - - Weight 68.3 kg (150 lb 8 oz) 10/01/2005 8:30 AM MEDIATION COMMISSIONER Height 167.6 cm (5' 6) 10/01/2005 8:30 AM MEDIATION COMMISSIONER Body Mass Index 24.29 10/01/2005 8:30 AM MEDIATION COMMISSIONER Plan of Treatment Not on file Care Teams Shell Fisherman Relationship Specialty Start Date End Date [facility] INTERNATIONAL [place] [address] PCP - General Family Practice 05/04/18 Rosalinda Diaz MD [address] [address] 05/04/18
--- OUTSIDE RECORDS SUMMARY | 2024-05-28 07:50 | XMS_ITS | Referral Summary ---
Author Organization [place] Address [address] [place] [address] Care Team Providers Care Internet Assessor Name Role Phone [facility], [facility] Primary Care Provide r Rosalinda Diaz MD Unavailable Allergies Active Allergy Reactions Criticality Noted Date [...] on file Legal Sex Female 4:13 AM SENIOR BENEFITS ANALYST Gender Identity Not on file Sexual Orientation Not on file Last Filed Vital Signs Vital Sign Reading Time Taken Comments Blood Pressure 112/70 10/01/2005 8:30 AM SENIOR BENEFITS ANALYST Pulse 72 10/01/2005 8:30 AM SENIOR BENEFITS ANALYST Temperature 37.3 C (99.1 F) 11/18/2004 3:00 PM CDT Respiratory Rate 16 11/18/2004 3:00 PM CDT Oxygen Saturation - - Inhaled Oxygen Concentration - - Weight 68.3 kg (150 lb 8 oz) 10/01/2005 8:30 AM SENIOR BENEFITS ANALYST Height 167.6 cm (5' 6) 10/01/2005 8:30 AM SENIOR BENEFITS ANALYST Body Mass Index 24.29 10/01/2005 8:30 AM SENIOR BENEFITS ANALYST Plan of Treatment Not on file Care Teams Internet Assessor Relationship Specialty Start Date End Date [facility] [place] [address] PCP - General Family Practice 05/04/18 Rosalinda Diaz MD [address] [facility] [address] [address] 05/04/18
--- OUTSIDE RECORDS SUMMARY | 2024-05-28 07:50 | XMS_ITS | Clinical Summary ---
Author Organization [employer] [facility] Address [place], [place] [address] Care Team Providers Care Member Of The Legislative Council Name Role Phone Pcp, No Primary Care [...] Epidur al N Livin g [facility] on Delivery Location:Deb Comments:No complicati ons Comments Blood type A+ Last Filed Vital Signs Vital Sign Reading Time Taken Comments Blood Pressure 112/59 10/07/2010 8:49 AM CDT Pulse 80 10/05/2010 5:26 PM CDT Temperature 36.7 C (98.1 F) 10/05/2010 5:26 PM CDT Respiratory Rate 16 10/05/2010 5:26 PM CDT [...] for age 45-75 2023 COVID-19 vaccine series (2023- season) 2024 Influenza for age 9-49 03/04/2024 [...] ANTI HIV 1/2 Routine 08/18/2009 9:58 AM MATLAB DEVELOPER Supervision of Normal First LIPID PANEL Routine 06/16/2007 Screening For Cardiovascular Condition from Last 3 Months or Most Recently Relevant to Health Maintenance Results * HPV HIGH RISK (03/20/2021 9:30 AM CDT) TYPE 16 Negative Negative 03/24/2021 11:54 AM CDT [facility] TRAL LABORATORY TYPE 18 Negative Negative 03/24/2021 11:54 AM CDT [facility] TRA LABORATORY OTHER HIGH RISK TYPES Negative Negative 03/24/2021 11:54 AM CDT [facility] TRAL LABORATORY Other (Cervical/Vagina l) 03/20/2021 9:30 AM CDT 03/20/2021 6:24 PM CDT Narrative [facility] 03/24/2021 11:54 AM CDT HPV types 16, 18, 31, 33, 35, 39, 45, 51, 52, 56, 58, 59, 66 and 68 DNA were undetectable or below the pre-set threshold. Methodology: Andriy Natalay 4800 HPV Test Jennifer Johnson PA-C MICROBIOLOGY [facility] [address] [place] [address], * ANTI HIV 1/2 (08/18/2009 9:58 AM MATLAB DEVELOPER) ANTI HIV 1/2 Non-reacti ve [facility] Blood specimen (specimen) BLOOD SPECIMEN / Unknown 08/18/2009 9:58 AM MATLAB DEVELOPER 08/18/2009 9:51 AM MATLAB DEVELOPER Constance Roland MD SEND OUTS [facility] INTERNAL ZIP [address] [place] [address] * LIPID PANEL (06/16/2007) CHOLESTEROL,TOTAL mg/dL TRIGLYCERIDES mg/dL HDL CHOLESTEROL mg/dL LDL CHOLESTEROL mg/dL CHOL/HDL RATIO Blood specimen (specimen) BLOOD SPECIMEN / Unknown Constance Roland MD CHEMISTRY from Last 3 Months or Most Recently Relevant to Health Maintenance Care Teams Member Of The Legislative Council Relationship Specialty Start Date End Date Pcp, No . PCP - General 02/26/16
--- NOTE | 2024-05-28 08:15 | CRLHL7_ITS ---
For Patients: As a result of the Century Cures Act, medical imaging exams and procedure reports are released immediately into your electronic medical record. You may view this report before your referring provider. If you have questions, please contact your health care provider. ULTRASOUND-GUIDED BREAST BIOPSY AND POST-BIOPSY DIGITAL MAMMOGRAM FOR BIOPSY MARKER PLACEMENT CLINICAL HISTORY: Indeterminate nodule. COMPARISON STUDIES: 05/18/2024. TECHNIQUE: Real-time ultrasound with image documentation was used for targeting the breast lesion. Core biopsy specimens were obtained using an automated gun with an 18-gauge biopsy needle. Post-biopsy CC and ML digital mammograms were obtained to document position of the biopsy marker. CONSENT and TIME OUT: The procedure, risks, and alternatives were explained to the patient and a consent was signed. [place] Protocol was followed including pre-procedure verification that relevant information/documentation was available, reviewed and properly matched to the patient; consent accurate and complete; and equipment and supplies available. Time Out was conducted just prior to starting procedure to verify the four required elements: patient identity, correct side/site marked (if applicable), procedure, relevant images/results properly labeled and displayed (if applicable). PROCEDURE: The patient was positioned supine on the ultrasound table. The breast was prepped with ChloraPrep. 6 cc of 1 percent lidocaine used for local anesthesia. Core samples were obtained. A sterile metal biopsy clip was placed percutaneously to tiago the lesion position within the breast. The specimens were placed in 10% formalin and sent to the pathology department. Pressure was held on the biopsy site until all bleeding subsided. The skin incision was closed with Steri-Strips. An ice pack was positioned over the biopsy site. Post-biopsy instructions were reviewed with the patient, and a written copy was given to her. LATERALITY: LEFT breast. LESION: Hypoechoic nodule measuring 8 x 5 x 6 millimeters at 4 o`clock 4 cm from the nipple. SUSPICION FOR MALIGNANCY: Low. NUMBER OF SAMPLES: 5. BIOPSY CLIP SHAPE: Oval. PROXIMITY OF CLIP TO TARGET: Within the lesion. IMPRESSION: Ultrasound-guided breast biopsy. When the pathology report is available, an addendum to this report will be made. ACR not applicable Dictated by Sean Lund MD @ 05/28/2024 1:00:06 PM jj/Dictated by: Sean Lund MD @ 05/28/2024 1:00:00 PM (Electronically Signed)
--- NOTE | 2024-05-28 09:00 | CRLHL7_ITS ---
For Patients: As a result of the Century Cures Act, medical imaging exams and procedure reports are released immediately into your electronic medical record. You may view this report before your referring provider. If you have questions, please contact your health care provider. PLEASE SEE ULTRASOUND-GUIDED LEFT BREAST BIOPSY PERFORMED SAME DAY CRL:deni cheema/Dictated by: Sean Lund MD @ 05/28/2024 1:00:00 PM (Electronically Signed)
== END 2024-05-28 07:46 | disposition home or self-care (01) ==
LOC: US 07:46
PROVIDERS: PCP Physician Assistant Medical; Visit Provider Physician Assistant Medical
DX: R10.32 Left lower quadrant pain (principal); R92.8 Other abnormal and inconclusive findings on diagnostic imaging of breast
CPT/HCPCS: 19083; 77065; 88305; A4648; A4649

== ENCOUNTER 2024-05-30 16:16 | Outpatient (CLI) | payer OTHER, SELFPAY ==
--- OUTSIDE RECORDS SUMMARY | 2024-05-30 16:18 | XMS_ITS | Clinical Summary ---
Author Organization [place] Address [address] [place] [address] Care Team Providers Care Fabrication Mig Welder Name Role Phone [facility], [facility] Primary Care Provide r Rosalinda Diaz MD Unavailable [phone] Allergies Active Allergy Reactions Criticality Noted Date [...] on file Legal Sex Female 4:13 AM PRODUCT MANAGEMENT SPECIALIST Gender Identity Not on file Sexual Orientation Not on file Last Filed Vital Signs Vital Sign Reading Time Taken Comments Blood Pressure 112/70 10/01/2005 8:30 AM PRODUCT MANAGEMENT SPECIALIST Pulse 72 10/01/2005 8:30 AM PRODUCT MANAGEMENT SPECIALIST Temperature 37.3 C (99.1 F) 11/18/2004 3:00 PM CDT Respiratory Rate 16 11/18/2004 3:00 PM CDT Oxygen Saturation - - Inhaled Oxygen Concentration - - Weight 68.3 kg (150 lb 8 oz) 10/01/2005 8:30 AM PRODUCT MANAGEMENT SPECIALIST Height 167.6 cm (5' 6) 10/01/2005 8:30 AM PRODUCT MANAGEMENT SPECIALIST Body Mass Index 24.29 10/01/2005 8:30 AM PRODUCT MANAGEMENT SPECIALIST Plan of Treatment Not on file Care Teams Fabrication Mig Welder Relationship Specialty Start Date End Date [facility] [place] [address] PCP - General Family Practice 05/04/18 Rosalinda Diaz MD [address] [address] 05/04/18
--- OUTSIDE RECORDS SUMMARY | 2024-05-30 16:18 | XMS_ITS | Referral Summary ---
Author Organization [place] Address [address] [place] [address] Care Team Providers Care Alarm Service Technician Name Role Phone [facility], [facility] Primary Care Provide r Rosalinda Diaz MD Unavailable [phone] Allergies Active Allergy Reactions Criticality Noted Date [...] on file Legal Sex Female 4:13 AM PULVI MIXER OPERATOR Gender Identity Not on file Sexual Orientation Not on file Last Filed Vital Signs Vital Sign Reading Time Taken Comments Blood Pressure 112/70 10/01/2005 8:30 AM PULVI MIXER OPERATOR Pulse 72 10/01/2005 8:30 AM PULVI MIXER OPERATOR Temperature 37.3 C (99.1 F) 11/18/2004 3:00 PM CDT Respiratory Rate 16 11/18/2004 3:00 PM CDT Oxygen Saturation - - Inhaled Oxygen Concentration - - Weight 68.3 kg (150 lb 8 oz) 10/01/2005 8:30 AM PULVI MIXER OPERATOR Height 167.6 cm (5' 6) 10/01/2005 8:30 AM PULVI MIXER OPERATOR Body Mass Index 24.29 10/01/2005 8:30 AM PULVI MIXER OPERATOR Plan of Treatment Not on file Care Teams Alarm Service Technician Relationship Specialty Start Date End Date [facility] PRODUCT [place] [address] PCP - General Family Practice 05/04/18 Rosalinda Diaz MD [facility] [facility] [address] [address] 05/04/18
--- OUTSIDE RECORDS SUMMARY | 2024-05-30 16:18 | XMS_ITS | Clinical Summary ---
Author Organization [facility] Address [place], [place] [address] Care Team Providers Care Disability Hearing Officer Name Role Phone Pcp, No Primary Care [...] U/S 11/10/09 @ 20w0d = MALCOLM 03/30/10 Encounters Date Type Department Care Team Description 05/28/2024 Lab Requisition [facility] [phone] Jennifer Johnson PA-C from Last 3 Months Immunizations Name Administration Dates Next Due Influenza, [...] Anes PTL Kelli A1 A5 Name Clin 2005 IAB Comments:No complicati ons 2009 Term 40w 3d 3.54 kg (7 lb 13 oz) F Vag Epidur al N Livin g [place] [facility] on Delivery Location:[facility] Comments:No complicati ons Comments [...] Procedure Name Priority Date/Time Associated Diagnosis Comments PATH BREAST CORE BIOPSY Routine 05/28/2024 8:25 AM STOCK CHASER HPV HIGH RISK Routine 03/20/2021 9:30 AM CDT ANTI HIV 1/2 Routine 08/18/2009 9:58 AM STOCK CHASER Supervision of Normal First LIPID PANEL Routine 06/16/2007 Screening For Cardiovascular Condition from Last 3 Months or Most Recently Relevant to Health Maintenance Results * PATH BREAST CORE BIOPSY (05/28/2024 8:25 AM STOCK CHASER) Case Report Pathology Report Case: [id number] Authorizing Provider: Jennifer Johnson PA-C Collected: 05/28/2024 0825 Ordering Location: [facility] Received: 05/28/2024 0716 Pathologist: Irving Kuo MD Specimen: Left Breast Core Ultrasound Biopsy 05/29/2024 11:26 AM [facility] Final Diagnosis A) LEFT BREAST, 4:00, 4 CM FROM NIPPLE, ULTRASOUND-GUID ED CORE BIOPSY: 1. Non-proliferati ve fibrocystic change 2. Calcifications: Absent 3. Negative for atypia and malignancy 05/29/2024 11:26 AM [facility] Comment A) This is an image-guided breast biopsy. The pathologic findings should be correlated with radiologic and clinical findings prior to treatment decisions. Case seen in consultation with Dr. Murdock. 05/29/2024 11:26 AM [facility] Clinical Information A) INDICATION: Left Breast Mass LESION DESCRIPTION: Oval Mass LOCATION: 4:00, 4 CM FROM THE NIPPLE SIZE: 8 x 6 x 5 mm 05/29/2024 11:26 AM [facility] Gross Description A) Label: Patient's name and left breast 4:00 4 cm Description: 5 Fibrofatty core biopsies Size: 0.3-1.1 cm in length by 0.2 cm in diameter Ink color: Black The specimen is submitted in toto in one cassette. Cold ischemic time: Less than 60 minutes, meets current ASCO/CAP guidelines. The specimen was fixed in formalin for a minimum of 6 hours and not longer than 72 hours. TLF 05/28/2024 05/29/2024 11:26 AM [facility] Microscopic Description The final diagnosis is based on microscopic examination of appropriate sections of all specimens. A) The presence of black ink is confirmed on tissue sections. 05/29/2024 11:26 AM [facility] [employer] [facility] Additional Information Interpreted at [facility] - [address], [place] [address] 05/29/2024 11:26 AM STOCK CHASER [facility] Other (Left Breast Core Ultrasound Biopsy) 05/28/2024 8:25 AM STOCK CHASER 05/28/2024 5:58 PM STOCK CHASER Jennifer Johnson PA-C PATHOLOGY/CYTOLOGY [facility] [address] [place] [address], [place] * HPV HIGH RISK (03/20/2021 9:30 AM CDT) TYPE 16 Negative Negative 03/24/2021 11:54 AM CDT [facility] TYPE 18 Negative Negative 03/24/2021 11:54 AM CDT [facility] OTHER HIGH RISK TYPES Negative Negative 03/24/2021 11:54 AM CDT [facility] Other (Cervical/Vagina l) 03/20/2021 9:30 AM CDT 03/20/2021 6:24 PM CDT Narrative [facility] - 03/24/2021 11:54 AM CDT HPV types 16, 18, 31, 33, 35, 39, 45, 51, 52, 56, 58, 59, 66 and 68 DNA were undetectable or below the pre-set threshold. Methodology: Andriy Natalya 4800 HPV Test Jennifer Johnson PA-C MICROBIOLOGY [facility] [address] [place] [address], [place] * ANTI HIV 1/2 (08/18/2009 9:58 AM STOCK CHASER) ANTI HIV 1/2 Non-reacti ve [facility] Blood specimen (specimen) BLOOD SPECIMEN / Unknown 08/18/2009 9:58 AM STOCK CHASER 08/18/2009 9:51 AM STOCK CHASER Constance Roland MD SEND OUTS [facility] [place] ZIP [address] [place] [address] * LIPID PANEL (06/16/2007) CHOLESTEROL,TOTAL mg/dL TRIGLYCERIDES mg/dL HDL CHOLESTEROL mg/dL LDL CHOLESTEROL mg/dL CHOL/HDL RATIO Blood specimen (specimen) BLOOD SPECIMEN / Unknown Constance Roland MD CHEMISTRY from Last 3 Months or Most Recently Relevant to Health Maintenance Care Teams Disability Hearing Officer Relationship Specialty Start Date End Date Pcp, No . PCP - General 02/26/16
--- NOTE | 2024-05-30 16:45 | CRLHL7_ITS ---
For Patients: As a result of the Century Cures Act, medical imaging exams and procedure reports are released immediately into your electronic medical record. You may view this report before your referring provider. If you have questions, please contact your health care provider. INDICATION: LEFT LOWER QUADRANT PAIN TECHNIQUE: A CT volumetric acquisition was performed of the abdomen and pelvis without intravenous contrast. Please note that all CT scans at this facility use dose modulation, iterative reconstruction, and/or weight-based dosing when appropriate to reduce radiation dose to as low as reasonably achievable. COMPARISON: none FINDINGS: The CT images demonstrate normal aeration of the lung bases. There is no evidence of pleural or pericardial fluid. Within the abdomen the liver appears normal in size and density. The spleen is of normal size. There is no evidence of mass effect or inflammation within the pancreas. The gallbladder and bile ducts appear normal. The adrenal glands have normal morphology. The kidneys are of normal size and there is no evidence of a calculus within either kidney or ureter and there is no evidence of hydronephrosis. Increased stool in the colon. The aorta and IVC appear normal. There is no evidence of retroperitoneal lymphadenopathy. Mild physiologic pelvic fluid. Small cyst right ovary measuring 2.3 cm. There is no evidence of a ventral abdominal wall hernia. IMPRESSION: Increased colonic stool consistent with constipation. No evidence of diverticulitis. No renal or ureteral stones. Please note that all CT scans at this facility use dose modulation, iterative reconstruction, and/or weight-based dosing when appropriate to reduce radiation dose to as low as reasonably achievable. Dictated by Sean Lund MD @ 06/01/2024 8:43:59 AM (Electronically Signed)
== END 2024-05-30 16:17 | disposition home or self-care (01) ==
LOC: CT 16:16
PROVIDERS: PCP Physician Assistant Medical; Visit Provider Physician Assistant Medical
DX: R10.32 Left lower quadrant pain (principal); K59.00 Constipation, unspecified
CPT/HCPCS: 74176

== ENCOUNTER 2024-06-19 09:52 | Outpatient (CLI) | payer OTHER, SELFPAY | END 2024-06-19 09:53 | disposition home or self-care (01) | LOC: LKVREF 09:52 | PROVIDERS: PCP Physician Assistant Medical; Visit Provider Otolaryngology | DX: G25.81 Restless legs syndrome (principal) | CPT/HCPCS: 82728 ==

== ENCOUNTER 2024-06-28 08:52 | Outpatient (CLI) | payer OTHER, SELFPAY ==
--- NOTE | 2024-06-28 09:00 | CRLHL7_ITS ---
For Patients: As a result of the Century Cures Act, medical imaging exams and procedure reports are released immediately into your electronic medical record. You may view this report before your referring provider. If you have questions, please contact your health care provider. INDICATION: Chronic throat pain. COMPARISON: None. TECHNIQUE: CT soft tissue neck with IV contrast. Isovue 370 79 cc. FINDINGS: Normal bilateral parotid and submandibular glands. Normal thyroid gland. No enlarged cervical lymph nodes bilaterally. No supraclavicular superior mediastinal adenopathy. Nasopharynx and oropharynx are clear. No inflammation within the parapharyngeal fat pads or retropharyngeal space. No mass or asymmetry to base of tongue. Normal thickness of the epiglottis. Normal glottis with symmetric vocal cords. Airways patent. Lung apices are clear. Normal alignment of the cervical spine. No prevertebral soft tissue swelling. Visualized paranasal sinuses and mastoid air cells are clear. IMPRESSION: 1. No adenopathy. 2. Normal deep soft tissues of the neck. 3. No prevertebral soft tissue swelling Please note that all CT scans at this facility use dose modulation, iterative reconstruction, and/or weight-based dosing when appropriate to reduce radiation dose to as low as reasonably achievable. Dictated by David Gaviria MD @ 06/28/2024 10:52:13 AM (Electronically Signed)
== END 2024-06-28 08:53 | disposition home or self-care (01) ==
LOC: CT 08:52
PROVIDERS: PCP Physician Assistant Medical; Visit Provider Otolaryngology
DX: R07.0 Pain in throat (principal); M54.2 Cervicalgia
CPT/HCPCS: 70491; Q9967

== ENCOUNTER 2024-07-23 09:01 | Outpatient (CLI) | payer OTHER, SELFPAY ==
--- NOTE | 2024-07-31 11:56 | W.PM.SLEEP ---
Sleep Study Details Details Interpreting Provider: Britton Date of Sleep Study: 07/23/24 Sleep Study Details: STUDY TYPE:? Home unattended ? BMI:? Not recorded ORDERING PROVIDER:? Britton INDICATION:? Concern about sleep apnea ? SLEEP SUMMARY:? 450 minutes monitored RESPIRATORY SUMMARY:? AHI 3.1, low oxygen 88, snoring 100% PERIODIC LIMB MOVEMENTS OF SLEEP:? Not recorded CARDIAC:? Range 50-92, mean 63 IMPRESSION:? This study did not demonstrate clinically significant obstructive sleep apnea. RECOMMENDATION: If sleep disorder strongly suspected recommend repeat study with either a sedative hypnotic agent or an in-lab study.
== END 2024-07-23 09:02 | disposition home or self-care (01) ==
LOC: SLEEP 09:02
PROVIDERS: PCP Physician Assistant Medical; Visit Provider Otolaryngology
DX: G47.19 Other hypersomnia (principal)
CPT/HCPCS: 95806